=== PATIENT | female | born 1960 | race Caucasian/White ===

== ENCOUNTER 2023-02-17 16:56 | Observation (INO) ==
[2023-02-17] MEDS ORDERED: IOPAMIDOL 100 ML BOTTLE IV ONE (16:57)
[2023-02-17] MEDS ORDERED: HALOPERIDOL LACTATE 5 MG/ML VIAL IM ONE (17:44)
[2023-02-17] MEDS ORDERED: diphenhydrAMINE 50 MG/ML VIAL IV ONE (18:31)
[2023-02-17] MEDS ORDERED: LORazepam 2 MG/ML VIAL IV ONE (18:31)
[2023-02-17] MEDS ORDERED: LORazepam 2 MG/ML VIAL IM ONE (18:33)
[2023-02-17] MEDS ORDERED: diphenhydrAMINE 50 MG/ML VIAL IM ONE (18:34)
[2023-02-17 19:37] LABS: POC Calcium, Ionized 1.16 (1.16-1.32); POC Creatinine 0.8 (0.6-1.2); POC Potassium 3.6 (3.3-5.1)
[2023-02-17 20:20] LABS: Basophils # (Auto) 0.04 K/mcL (0.00-0.30); Basophils % (Auto) 0.6 % (0.0-2.0); Eosinophils # (Auto) 0.17 K/mcL (0.00-0.70); Eosinophils % (Auto) 2.5 % (0.0-7.0); Hemoglobin 12.7 g/dL (11.2-15.7); Lymphocytes # (Auto) 1.78 K/mcL (1.50-4.80); Lymphocytes % (Auto) 25.9 % (15.5-49.0); Mean Cell Volume 90.7 fL (80.0-100.0); Mean Corpuscular HGB Conc 33.4 g/dL (31.0-36.0); Mean Platelet Volume 11.5 fL (8.8-12.5); Monocytes # (Auto) 0.64 K/mcL (0.10-0.90); Monocytes % (Auto) 9.3 % (1.0-12.0); Neutrophils % (Auto) 61.6 % (38.0-78.0); Platelet Count 261 K/mcL (140-440); RBC 4.19 M/mcL (3.59-5.38); Red Cell Distribution Width 12.2 % (11.5-14.5); WBC 6.9 K/mcL (4.5-11.0)
[2023-02-17 20:54] LABS: ALT/SGPT 30 U/L (<40); AST/SGOT 31 U/L (<32); Albumin 3.8 gm/dL (3.2-5.2); Albumin/Globulin Ratio 1.4 (1.0-2.3); Alkaline Phosphatase 75 U/L (39-117); Bilirubin,Total 0.5 mg/dL (0.1-1.0); Blood Urea Nitrogen 12 mg/dL (8-23); Carbon Dioxide 24 mmol/L (22-30); Chloride 105 mmol/L (96-108); Globulin 2.7 gm/dL (2.2-3.7); Glomerular Filtration Rate 69; Glucose 91 mg/dL (70-105)
[2023-02-17] MEDS ORDERED: 0.9 % SODIUM CHLORIDE 1,000 ML IV ONE (22:58)
[2023-02-17] MEDS ORDERED: cefTRIAXone 1 GM VIAL IV ONE (23:11)
[2023-02-17] MEDS ORDERED: AZITHROMYCIN 500 MG in DEXTROSE 5% IN WATER 250 ML IV ONE (23:11)
[2023-02-17 23:25] LABS: Appearance,Urine HAZY (Clear); Bilirubin,Urine Negative (Negative); Color,Urine Yellow; Culture Indicated,Urine No; Glucose,Urine (UA) Negative (Negative); Ketones,Urine 5 mg/dL (Negative); Leukocyte Esterase,Urine Negative /uL (Negative); Mucus,Urine MANY /hpf; Nitrate,Urine Negative (Negative); Protein,Urine 30 mg/dL (Negative); Specific Gravity,Urine 1.038 (1.000-1.035); Urine Blood Negative (Negative); Urine RBC 2 /hpf (0-3); Urine Squamous Epithelial Cell 1 /hpf (0-4); Urine WBC 1 /hpf (0-4)
[2023-02-18] MEDS ORDERED: diphenhydrAMINE 50 MG/ML VIAL IV PRN ×2 (00:05→16:08)
[2023-02-18] MEDS ORDERED: LORazepam 2 MG/ML VIAL IV PRN (00:05)
[2023-02-18] MEDS ORDERED: SENNOSIDES 1 TABLET PO PRN (08:23)
[2023-02-18] MEDS ORDERED: POLYETHYLENE GLYCOL 3350 17 GM PACKET PO PRN (08:23)
[2023-02-18] MEDS ORDERED: IPRATROPIUM/ALBUTEROL 3 ML AMPUL.NEB NEB PRN (08:23)
[2023-02-18] MEDS ORDERED: MAGNESIUM SULFATE 2 GM/50 ML BAG IV PRN (08:23)
[2023-02-18] MEDS ORDERED: ONDANSETRON 4 MG/2 ML VIAL IV PRN (08:23)
[2023-02-18] MEDS ORDERED: POTASSIUM CHLORIDE 20 MEQ TABLET PO PRN ×2 (08:23)
[2023-02-18] MEDS ORDERED: POTASSIUM CHLORIDE 40 MEQ in DEXTROSE 5% IN WATER 500 ML IV PRN (08:23)
[2023-02-18] MEDS: DILTIAZEM 120 MG CAP.XL.24H PO SCH (09:29)
[2023-02-18] MEDS: DOCUSATE SODIUM 100 MG CAPSULE PO SCH ×2 (09:30→21:42)
[2023-02-18] MEDS: DIAZEPAM 10 MG/2 ML SYRINGE IV PRN ×2 (16:01→21:55)
[2023-02-18] MEDS ORDERED: traZODone HCL 50 MG TABLET PO SCH (21:00)
[2023-02-18] MEDS ORDERED: DONEPEZIL 10 MG TABLET PO SCH (21:00)
[2023-02-18] MEDS ORDERED: SIMVASTATIN 10 MG TABLET PO SCH (21:00)
[2023-02-19] MEDS: DIAZEPAM 10 MG/2 ML SYRINGE IV PRN (05:27)
[2023-02-19] MEDS: DOCUSATE SODIUM 100 MG CAPSULE PO SCH (08:20)
[2023-02-19] MEDS: DILTIAZEM 120 MG CAP.XL.24H PO SCH (08:20)
[2023-02-19] MEDS ORDERED: traMADol 50 MG TABLET PO ONE (08:45)
[2023-02-19] MEDS ORDERED: traMADol 50 MG TABLET PO PRN (08:45)
[2023-02-19] MEDS ORDERED: cefTRIAXone 1 GM VIAL IV SCH (09:00)
[2023-02-19] MEDS ORDERED: ASPIRIN 81 MG TAB.CHEW PO SCH (09:00)
== END 2023-02-19 12:41 ==
LOC: ED 16:56 → MEDSUR 16:56
PROVIDERS: ADMIT Internal Medicine; ATTEND Internal Medicine